=== PATIENT | female | born 1950 | race Caucasian/White ===

== ENCOUNTER 2018-10-17 09:44 | Emergency (ER) | payer OTHER ==
[~2018-10-17] VITALS: Ht 149.9 cm; Wt 66.9 kg
[2018-10-17 09:47] VITALS: BP 131/68; PULSE 65; RESP 16; Ht 149.9 cm; Wt 66.9 kg
[2018-10-17] MEDS ORDERED: KETOROLAC 30 MG INJ IM STA (10:02)
--- NOTE | 2018-10-17 10:10 | ERD ---
ER Documentation Chief Complaint Chief Complaint pt is bib family with c/o left leg pain 3 days after epidural for pain HPI 67-year-old female with past medical history of hypertension, hypothyroidism, chronic lower back pain with radiculopathy who presents with complaint of lower back pain radiating to the left lower extremity over the past 3 days. Patient states she had an epidural 3 days ago at a pain specialist but with return of pain post procedure warranting her presentation to this ED. Describes sharp lower back pain radiating to the left lower leg typical of her symptoms related to chronic back pain. She otherwise denies lower extremity weakness or numbness, urinary or bowel incontinence, recent trauma or fall. Has been taking gabapentin as well as Tylenol for her pain. She otherwise is without complaint. ROS All systems reviewed and are negative except as per history of present illness. Medications Home Meds Active Scripts Tramadol HCl (Tramadol HCl) 50 Mg Tablet, 50 MG PO Q6 PRN for PAIN, #20 TAB Prov:LEON ROLONC 10/17/18 Naproxen* (Naprosyn*) 500 Mg Tablet, 500 MG PO BID PRN for PAIN AND/OR INFLA MMATION, #30 TAB Prov:LEON ROLONC 10/17/18 Prednisone* (Prednisone*) 20 Mg Tab, 40 MG PO DAILY for 4 Days, TAB Prov:LEON ROLON-C 10/17/18 Allergies Allergies: Coded Allergies: No Known Allergy (Unverified , 10/17/18) PMhx/Soc History of Surgery: Yes (TUMOR REMOVAL, SHOULDER, EYE) Hx Cardiac Disorders: Yes (HTN) Hx Miscellaneous Medical Probl: Yes (ARTHRITIS, THYROID, BACK) FmHx Family History: coronary disease Physical Exam Vitals Vital Signs Date Temp Pulse Resp B/P (MAP) Pulse Ox O2 O2 Flow FiO2 Time Delivery Rate 10/17/18 98.4 65 16 131/68 98 09:47 (89) Physical Exam I have reviewed the triage vital signs. Const: Well nourished, well developed, appears stated age Eyes: PERRL, no conjunctival injection HENT: NCAT, Neck supple without meningismus CV: RRR, Warm, well-perfused extremities RESP: CTAB, Unlabored respiratory effort GI: soft, non-tender, non-distended, no masses MSK: No gross deformities appreciated, positive straight leg test left lower extremity, painful range of motion, no focal weakness, SI LT throughout Skin: Warm, dry. No rashes Neuro: grossly non focal Psych: Appropriate mood and affect. Results 24 hrs Current Medications Medications Dose Sig/Praneeth Start Time Status Last (Trade) Ordered Route PRN Stop Time Admin Dose Reason Admin Ketorolac 30 mg ONCE STAT 10/17/18 DC 10/17/18 Tromethamine IM 10:02 10/17/18 10:08 (Toradol) 10:04 10 mg ONCE ONCE 10/17/18 DC 10/17/18 Dexamethasone IM 10:30 10/17/18 10:08 (Decadron) 10:31 Procedures/MDM 67-year-old female chronic back pain history who presents with complaint of lower back pain with radiculopathy. She does not report any red flag symptoms. Low suspicion for acute cord compression or cauda equina at this time, given presentation and symptoms, including epidural abscess or hematoma. Patient has no history of malignancy, active or distant history. Patient has no unexplained weight loss. No recent fevers, rigors, malaise, or recent infection. No history of IVDU or skin-popping. Patient does not have any history concerning for saddle anesthesia/perianal sensory loss or complaining of decreased rectal tone. Patient does not have urinary retention or inability to control urine from overflow. Patient has no tenderness overlying spinous process. Patient has no focal weakness on examination. ED course: Toradol, Decadron Will discharge with short course of steroids, appropriate pain medication, advised patient to follow-up with her PMD, pain specialist Given exam and history, low suspicion for cord compression, cauda equina, epidural abscess/hematoma. Distally neurovascularly intact. Query likely musculoskeletal component. Discussed pain control,and follow up with PMD. Cautious return precautions discussed w/ full understanding Departure Condition: Stable LEON ROLON PA-C Oct 17, 2018 10:10
[2018-10-17] MEDS ORDERED: NAPR-985 PO (10:11)
[2018-10-17] MEDS ORDERED: PRED20TA PO (10:11)
[2018-10-17] MEDS ORDERED: TRAM50TA2 PO (10:11)
[2018-10-17] MEDS ORDERED: DEXAMETHASONE 10 MG/ML 1 ML INJ IM ONE (10:30)
== END 2018-10-17 11:07 | disposition home or self-care (01) ==
LOC: FTE 09:44
DX: M54.16 Radiculopathy, lumbar region (principal); I10 Essential (primary) hypertension; E03.9 Hypothyroidism, unspecified
CPT/HCPCS: 96372; 99284; J1100; J1885

== ENCOUNTER 2018-12-28 14:44 | Emergency (ER) | payer OTHER ==
[~2018-12-28] VITALS: Ht 147.3 cm; Wt 67.8 kg
[~2018-12-28 14:44] MED LIST: IBUP-1542 PO; NAPR-985 PO; PRED20TA PO; TRAM50TA2 PO
[2018-12-28 15:02] VITALS: BP 152/69; PULSE 78; RESP 16; Ht 147.3 cm; Wt 67.8 kg
[2018-12-28] MEDS ORDERED: KETOROLAC 30 MG INJ IM STA (15:39)
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
== END 2018-12-28 17:10 | disposition home or self-care (01) ==
LOC: FTE 14:44
DX: S63.502A Unspecified sprain of left wrist, initial encounter (principal); S49.92XA Unspecified injury of left shoulder and upper arm, initial encounter; I10 Essential (primary) hypertension; V49.40XA Driver injured in collision with unspecified motor vehicles in traffic accident, initial encounter
CPT/HCPCS: 29125; 73130; 96372; 99284; J1885